=== PATIENT | female | born 1960 | race Caucasian/White ===

== ENCOUNTER 2019-12-28 18:26 | Emergency (ER) | payer BC ==
[~2019-12-28] VITALS: Ht 167.6 cm; Wt 163.8 kg
[2019-12-28] MEDS ORDERED: LISI20TA20 PO (18:39)
[2019-12-28] MEDS ORDERED: CITA40TA4 PO (18:39)
[2019-12-28 20:22] LABS: BASO # 0.1 10^3/uL (0.0-0.2); BASO % 0.8 % (0.0-1.0); EOS # 0.4 10^3/uL (0.0-0.5); EOS % 2.4 % (0.0-3.0); HEMATOCRIT 41.8 % (36.0-47.0); HEMOGLOBIN 13.5 g/dl (12.0-15.5); LYMPH # 1.7 10^3/uL (1.5-5.0); MEAN CORPUSCULAR HEMOGLOBIN 29.2 pg (27.0-33.0); MEAN CORPUSCULAR HGB CONC 32.3 g/dl (32.0-36.5); MEAN CORPUSCULAR VOLUME 90.5 fl (80.0-96.0); MONO # 1.6 10^3/uL (0.0-0.8); MONO % 9.3 % (0.0-5.0); NEUTROPHILS # 13.3 10^3/uL (1.5-8.5); NEUTROPHILS % 76.8 % (36.0-66.0); PLATELET COUNT, AUTOMATED 381 10^3/uL (150-450); RED BLOOD COUNT 4.62 10^6/uL (4.00-5.40); WHITE BLOOD COUNT 17.3 10^3/uL (4.0-10.0)
[2019-12-28] MEDS ORDERED: BACTRIM 160MG/800MG DS TAB PO ONE (20:30)
[2019-12-28 20:31] VITALS: BP 156/84
[2019-12-28] MEDS ORDERED: BACT800T5 PO (20:32)
== END 2019-12-28 20:35 | disposition home or self-care (01) ==
LOC: M ED 18:26
DX: L08.9 Local infection of the skin and subcutaneous tissue, unspecified (principal); I10 Essential (primary) hypertension